=== PATIENT | female | born 1960 | race Caucasian/White ===

== ENCOUNTER 2023-04-04 12:35 | Observation (INO) | payer OTHER ==
[2023-04-04] MEDS ORDERED: ACETAMINOPHEN 1000 MG/100 ML BAG IVPB ONE (14:34)
[2023-04-04] MEDS ORDERED: ACETAMINOPHEN INJECTION 100 ML IVPB ONE (14:36)
[2023-04-04 15:11] LABS: BASO % 0.3 % (0-2.0); EOS % 0.6 % (0-4.5); HEMATOCRIT 16.7 % (32.4-45.2); LYMPH % 18.9 % (8-40); MCH 25.7 pg (25.7-33.7); MCHC 32.3 g/dl (32.0-36.0); MEAN CELL VOLUME 79.5 fl (80-96); MEAN PLT VOLUME 6.2 fl (7.5-11.1); MONO % 5.6 % (3.8-10.2); NEUT % 74.6 % (42.8-82.8); PLATELET COUNT 357 10^3/uL (134-434); WHITE BLOOD COUNT 6.5 K/mm3 (4.0-10.0)
[2023-04-04 15:13] LABS: HEMOGLOBIN 5.4 GM/dL (10.7-15.3)
[2023-04-04 15:22] LABS: POTASSIUM 3.5 mmol/L (3.5-5.1)
[2023-04-04 15:23] LABS: INR 1.08 (0.83-1.09); PROTHROMBIN TIME (PATIENT) 12.5 SEC (9.7-13.0)
[2023-04-04 15:24] LABS: ALBUMIN 1.7 g/dl (3.4-5.0); CALCIUM 7.7 mg/dL (8.5-10.1)
[2023-04-04 15:25] LABS: BLOOD UREA NITROGEN 6.2 mg/dL (7-18)
[2023-04-04 15:28] LABS: CREATININE 1.1 mg/dL (0.55-1.3)
[2023-04-04 15:29] LABS: BILIRUBIN,TOTAL 0.4 mg/dL (0.2-1); TOT PROT 6.2 g/dl (6.4-8.2)
[2023-04-04] MEDS ORDERED: ACETAMINOPHEN 325 MG TABLET (FP) PO PRN (19:47)
[2023-04-04 20:52] LABS: RETICULOCYTES 1.93 % (0.5-1.5)
[2023-04-04] MEDS: ATORVASTATIN CA 80 MG TABLET (FP) PO SCH (23:00)
[2023-04-04] MEDS: HEPARIN NA (PORCINE) 5,000 UNITS/ML 1ML VIAL SQ SCH (23:00)
[2023-04-04] MEDS: INSULIN SLIDING SCALE (NOVOLOG) 1 VIAL SQ SCH (23:07)
[2023-04-05 00:10] VITALS: BMI 21.0
[2023-04-05] MEDS: INSULIN SLIDING SCALE (NOVOLOG) 1 VIAL SQ SCH ×4 (06:01→21:44)
[2023-04-05] MEDS: HEPARIN NA (PORCINE) 5,000 UNITS/ML 1ML VIAL SQ SCH ×2 (09:17→21:32)
[2023-04-05] MEDS: PANTOPRAZOLE 40 MG TABLET PO SCH (09:17)
[2023-04-05 09:42] LABS: BASO % 0.4 % (0-2.0); EOS % 0.9 % (0-4.5); HEMATOCRIT 22.2 % (32.4-45.2); HEMOGLOBIN 7.2 GM/dL (10.7-15.3); LYMPH % 21.8 % (8-40); MCH 25.8 pg (25.7-33.7); MCHC 32.2 g/dl (32.0-36.0); MEAN CELL VOLUME 80.1 fl (80-96); MEAN PLT VOLUME 6.7 fl (7.5-11.1); MONO % 6.1 % (3.8-10.2); NEUT % 70.8 % (42.8-82.8); PLATELET COUNT 350 10^3/uL (134-434); RBC 2.77 M/mm3 (3.60-5.2); WHITE BLOOD COUNT 6.1 K/mm3 (4.0-10.0)
[2023-04-05 10:06] LABS: MAGNESIUM 1.8 mg/dL (1.8-2.4)
[2023-04-05 10:10] LABS: PHOSPHOROUS 1.8 mg/dL (2.5-4.9)
[2023-04-05] MEDS ORDERED: SODIUM PHOSPHATE - 15 MM in SODIUM CHLORIDE 250 ML IVPB ONE (19:00)
[2023-04-05] MEDS: ATORVASTATIN CA 80 MG TABLET (FP) PO SCH (21:32)
[2023-04-06] MEDS: INSULIN SLIDING SCALE (NOVOLOG) 1 VIAL SQ SCH ×5 (06:03→22:04)
[2023-04-06] MEDS: PANTOPRAZOLE 40 MG TABLET PO SCH (09:43)
[2023-04-06] MEDS: HEPARIN NA (PORCINE) 5,000 UNITS/ML 1ML VIAL SQ SCH ×2 (09:43→22:04)
[2023-04-06 15:40] LABS: BASO % 0.3 % (0-2.0); HEMATOCRIT 17.7 % (32.4-45.2); LYMPH % 24.5 % (8-40); MCH 26.8 pg (25.7-33.7); MCHC 33.8 g/dl (32.0-36.0); MEAN CELL VOLUME 79.2 fl (80-96); MEAN PLT VOLUME 6.4 fl (7.5-11.1); MONO % 8.3 % (3.8-10.2); NEUT % 65.9 % (42.8-82.8); PLATELET COUNT 334 10^3/uL (134-434); RBC 2.24 M/mm3 (3.60-5.2); RDW 16.6 % (11.6-15.6)
[2023-04-06 15:54] LABS: POTASSIUM 3.4 mmol/L (3.5-5.1)
[2023-04-06 15:56] LABS: CALCIUM 7.2 mg/dL (8.5-10.1)
[2023-04-06 15:57] LABS: BLOOD UREA NITROGEN 18.7 mg/dL (7-18); MAGNESIUM 1.6 mg/dL (1.8-2.4)
[2023-04-06] MEDS ORDERED: MAGNESIUM SULF 50% (8.12 MEQ/2 ML-1 GM VIAL) IVPB ONE (15:57)
[2023-04-06 16:00] LABS: CREATININE 2.5 mg/dL (0.55-1.3); PHOSPHOROUS 2.4 mg/dL (2.5-4.9)
[2023-04-06] MEDS ORDERED: SODIUM PHOSPHATE - 0 MM in SODIUM CHLORIDE 250 ML IVPB ONE (16:15)
[2023-04-06] MEDS ORDERED: POTASSIUM PHOSPHATE 15 MM in SODIUM CHLORIDE 250 ML IVPB ONE (17:10)
[2023-04-06] MEDS: MIDODRINE HCL 2.5 MG TABLET PO SCH (18:06)
[2023-04-06] MEDS: ATORVASTATIN CA 80 MG TABLET (FP) PO SCH (22:04)
[2023-04-07] MEDS: INSULIN SLIDING SCALE (NOVOLOG) 1 VIAL SQ SCH ×4 (07:06→22:34)
[2023-04-07] MEDS ORDERED: SODIUM CHLORIDE 250 ML IV PRN (10:05)
[2023-04-07 10:33] LABS: BASO % 0.3 % (0-2.0); EOS % 1.1 % (0-4.5); LYMPH % 19.3 % (8-40); MCH 26.4 pg (25.7-33.7); MCHC 33.3 g/dl (32.0-36.0); MEAN CELL VOLUME 79.3 fl (80-96); MEAN PLT VOLUME 6.3 fl (7.5-11.1); MONO % 6.9 % (3.8-10.2); NEUT % 72.4 % (42.8-82.8); PLATELET COUNT 358 10^3/uL (134-434); RBC 2.64 M/mm3 (3.60-5.2); RDW 16.2 % (11.6-15.6); WHITE BLOOD COUNT 6.6 K/mm3 (4.0-10.0)
[2023-04-07 10:52] LABS: POTASSIUM 3.8 mmol/L (3.5-5.1)
[2023-04-07 10:54] LABS: CALCIUM 7.5 mg/dL (8.5-10.1)
[2023-04-07 10:55] LABS: BLOOD UREA NITROGEN 25.4 mg/dL (7-18)
[2023-04-07 10:57] LABS: CREATININE 2.9 mg/dL (0.55-1.3)
[2023-04-07] MEDS: MIDODRINE HCL 2.5 MG TABLET PO SCH ×2 (12:53→18:58)
[2023-04-07] MEDS: PANTOPRAZOLE 40 MG TABLET PO SCH (12:54)
[2023-04-07] MEDS: HEPARIN NA (PORCINE) 5,000 UNITS/ML 1ML VIAL SQ SCH ×2 (12:54→22:34)
[2023-04-07 16:31] VITALS: RESP 18
[2023-04-07] MEDS: ATORVASTATIN CA 80 MG TABLET (FP) PO SCH (22:48)
[2023-04-08] MEDS: INSULIN SLIDING SCALE (NOVOLOG) 1 VIAL SQ SCH ×3 (06:18→17:39)
[2023-04-08 06:52] VITALS: PULSE 92
[2023-04-08] MEDS: PANTOPRAZOLE 40 MG TABLET PO SCH (10:58)
[2023-04-08] MEDS: HEPARIN NA (PORCINE) 5,000 UNITS/ML 1ML VIAL SQ SCH (10:58)
[2023-04-08] MEDS: MIDODRINE HCL 2.5 MG TABLET PO SCH (10:58)
[2023-04-08 12:17] VITALS: BP 108/51; TEMP 98.1
[2023-04-08 13:06] LABS: BASO % 0.6 % (0-2.0); EOS % 1.1 % (0-4.5); HEMOGLOBIN 7.8 GM/dL (10.7-15.3); MCH 27.2 pg (25.7-33.7); MCHC 33.8 g/dl (32.0-36.0); MEAN CELL VOLUME 80.6 fl (80-96); MEAN PLT VOLUME 6.4 fl (7.5-11.1); MONO % 8.6 % (3.8-10.2); NEUT % 66.7 % (42.8-82.8); PLATELET COUNT 323 10^3/uL (134-434); RBC 2.85 M/mm3 (3.60-5.2); RDW 15.5 % (11.6-15.6); WHITE BLOOD COUNT 6.3 K/mm3 (4.0-10.0)
[2023-04-08 13:27] LABS: POTASSIUM 3.3 mmol/L (3.5-5.1)
[2023-04-08 13:29] LABS: CALCIUM 7.3 mg/dL (8.5-10.1)
[2023-04-08 13:30] LABS: ALBUMIN 1.5 g/dl (3.4-5.0); BLOOD UREA NITROGEN 14.9 mg/dL (7-18); MAGNESIUM 1.8 mg/dL (1.8-2.4)
[2023-04-08 13:33] LABS: PHOSPHOROUS 1.9 mg/dL (2.5-4.9)
[2023-04-08 13:34] LABS: TOT PROT 5.5 g/dl (6.4-8.2)
[2023-04-08 13:35] LABS: BILIRUBIN,TOTAL 0.6 mg/dL (0.2-1)
[2023-04-08] MEDS ORDERED: NAPH,MB-DB/K PH,MBDB POWDER PACKET PO ONE (13:40)
== END 2023-04-08 17:47 ==
LOC: JER 12:35 → JERBED 16:30 → J5S 20:00
PROVIDERS: ADMIT Internal Medicine
PROC: 30233N1 Transfusion of Nonautologous Red Blood Cells into Peripheral Vein, Percutaneous Approach (ICD-10-PCS; principal; 2023-04-04)
PROC: 3E033NZ Introduction of Analgesics, Hypnotics, Sedatives into Peripheral Vein, Percutaneous Approach (ICD-10-PCS; 2023-04-04)
PROC: 3E023GC Introduction of Other Therapeutic Substance into Muscle, Percutaneous Approach (ICD-10-PCS; 2023-04-04)
PROC: 3E033GC Introduction of Other Therapeutic Substance into Peripheral Vein, Percutaneous Approach (ICD-10-PCS; 2023-04-04)
PROC: 3E033GC Introduction of Other Therapeutic Substance into Peripheral Vein, Percutaneous Approach (ICD-10-PCS; 2023-04-04)
DX: D63.1 Anemia in chronic kidney disease (principal); E11.22 Type 2 diabetes mellitus with diabetic chronic kidney disease; R77.9 Abnormality of plasma protein, unspecified; Z86.73 Personal history of transient ischemic attack (TIA), and cerebral infarction without residual deficits; R01.1 Cardiac murmur, unspecified; N18.6 End stage renal disease; Z99.2 Dependence on renal dialysis; E78.5 Hyperlipidemia, unspecified; Z91.018 Allergy to other foods
CPT/HCPCS: 36415; 36430; 71045-TC-FY; 71046-TC-FY; 80048; 80053; 82272; 82728; 82962; 83540; 83550; 83735; 84100; 85025; 85045; 85610; 85730; 86704; 86803; 86900; 86922; 87340; 87517; 87635; 93005; 93010; 93306-TC; 96365; 96366; 96372; 96375; 97116-GP; 97162-GP; 99285-25; G0378; J1644; P9058

== ENCOUNTER 2023-04-25 11:41 | Emergency (ER) | payer OTHER ==
[2023-04-25 12:06] VITALS: BMI 20.8
[2023-04-25 13:57] LABS: INR 1.09 (0.83-1.09); PROTHROMBIN TIME (PATIENT) 12.6 SEC (9.7-13.0)
[2023-04-25 13:59] LABS: ACTIVATED PTT 27.2 SECONDS (25.2-36.5); BASO % 0.2 % (0-2.0); EOS % 0.9 % (0-4.5); HEMATOCRIT 18.5 % (32.4-45.2); LYMPH % 13.4 % (8-40); MCH 25.2 pg (25.7-33.7); MCHC 32.5 g/dl (32.0-36.0); MEAN CELL VOLUME 77.5 fl (80-96); MONO % 7.3 % (3.8-10.2); NEUT % 78.2 % (42.8-82.8); PLATELET COUNT 309 10^3/uL (134-434); RBC 2.39 M/mm3 (3.60-5.2); RDW 18.2 % (11.6-15.6); WHITE BLOOD COUNT 8.5 K/mm3 (4.0-10.0)
[2023-04-25 14:25] LABS: CHLORIDE 102 mmol/L (98-107); POTASSIUM 3.2 mmol/L (3.5-5.1); SODIUM 137 mmol/L (136-145)
[2023-04-25 14:27] LABS: CALCIUM 7.6 mg/dL (8.5-10.1)
[2023-04-25 14:28] LABS: ALBUMIN 1.5 g/dl (3.4-5.0); ANION GAP 5 mmol/L (4-13); CO2 30 mmol/L (21-32); GLUCOSE,RANDOM 122 mg/dL (74-106); MAGNESIUM 1.8 mg/dL (1.8-2.4)
[2023-04-25 14:31] LABS: CREATININE 1.1 mg/dL (0.55-1.3); SGOT/AST 6 U/L (15-37)
[2023-04-25 14:33] LABS: BILIRUBIN,TOTAL 0.5 mg/dL (0.2-1); TOT PROT 5.8 g/dl (6.4-8.2)
[2023-04-25 14:34] LABS: ALK PHOS 94 U/L (45-117)
[2023-04-25 14:35] LABS: PHOSPHOROUS 1.1 mg/dL (2.5-4.9); SGPT/ALT < 6 U/L (13-61)
[2023-04-25] MEDS ORDERED: NAPH,MB-DB/K PH,MBDB POWDER PACKET PO ONE (15:25)
[2023-04-25] MEDS ORDERED: NAPH,MB-DB/K PH,MBDB POWDER PACKET ONE (17:20)
[2023-04-25] MEDS ORDERED: ONDANSETRON 4 MG/2 ML VIAL ONE (17:26)
[2023-04-25 17:32] VITALS: BP 153/75; PULSE 95; RESP 18; TEMP 98.5
[2023-04-25] MEDS ORDERED: ONDANSETRON 4 MG/2 ML VIAL IVPUSH ONE (17:42)
== END 2023-04-25 22:56 ==
LOC: JER 11:41
PROC: 3E033GC Introduction of Other Therapeutic Substance into Peripheral Vein, Percutaneous Approach (ICD-10-PCS; principal; 2023-04-25)
DX: D64.9 Anemia, unspecified (principal); Z20.822 Contact with and (suspected) exposure to COVID-19
CPT/HCPCS: 0241U-QW; 36415; 36430; 80053; 83735; 84100; 85025; 85610; 85730; 86850; 86900; 86901; 86922; 93005; 93010; 99284-25; P9058

== ENCOUNTER 2023-05-13 09:48 | Inpatient (IN) | payer OTHER ==
[2023-05-13 11:05] LABS: BASO % 0.2 % (0-2.0); EOS % 0.8 % (0-4.5); HEMATOCRIT 21.6 % (32.4-45.2); LYMPH % 13.6 % (8-40); MCHC 30.6 g/dl (32.0-36.0); MEAN CELL VOLUME 78.4 fl (80-96); MEAN PLT VOLUME 7.3 fl (7.5-11.1); MONO % 6.3 % (3.8-10.2); NEUT % 79.1 % (42.8-82.8); PLATELET COUNT 440 10^3/uL (134-434); RBC 2.76 M/mm3 (3.60-5.2); WHITE BLOOD COUNT 11.3 K/mm3 (4.0-10.0)
[2023-05-13 11:06] LABS: HEMOGLOBIN 6.6 GM/dL (10.7-15.3)
[2023-05-13 11:09] LABS: INR 1.18 (0.83-1.09); PROTHROMBIN TIME (PATIENT) 13.7 SEC (9.7-13.0)
[2023-05-13 11:31] LABS: POTASSIUM 3.8 mmol/L (3.5-5.1)
[2023-05-13 11:33] LABS: CALCIUM 7.4 mg/dL (8.5-10.1)
[2023-05-13 11:34] LABS: ALBUMIN 1.2 g/dl (3.4-5.0); BLOOD UREA NITROGEN 20.3 mg/dL (7-18)
[2023-05-13 11:37] LABS: CREATININE 1.6 mg/dL (0.55-1.3)
[2023-05-13 11:38] LABS: BILIRUBIN,TOTAL 0.5 mg/dL (0.2-1)
[2023-05-13 11:39] LABS: ANISOCYTOSIS 3+; MACROCYTOSIS 0; OVALOCYTE 1+; TARGET CELLS 1+
[2023-05-13 12:14] LABS: RETICULOCYTES 3.12 % (0.5-1.5)
[2023-05-13] MEDS ORDERED: SODIUM CHLORIDE 250 ML IV STA (12:18)
[2023-05-13] MEDS ORDERED: ACETAMINOPHEN 325 MG TABLET (FP) PO PRN (16:10)
[2023-05-13] MEDS ORDERED: D5-1/2NS+20 MEQ KCL - 20 MEQ/1,000 ML INFUS.BAG IV SCH (16:15)
[2023-05-13] MEDS ORDERED: MIDODRINE HCL 5 MG TABLET ONE (17:13)
[2023-05-13] MEDS: MIDODRINE HCL 2.5 MG TABLET PO SCH (17:14)
[2023-05-13] MEDS: ATORVASTATIN CA 80 MG TABLET (FP) PO SCH (22:06)
[2023-05-13] MEDS: PANTOPRAZOLE SODIUM 40 MG VIAL IVPUSH SCH (22:07)
[2023-05-14 09:28] LABS: BASO % 0.1 % (0-2.0); EOS % 1.8 % (0-4.5); HEMATOCRIT 27.4 % (32.4-45.2); HEMOGLOBIN 9.1 GM/dL (10.7-15.3); LYMPH % 16.6 % (8-40); MCH 26.2 pg (25.7-33.7); MCHC 33.3 g/dl (32.0-36.0); MEAN CELL VOLUME 78.8 fl (80-96); MEAN PLT VOLUME 6.9 fl (7.5-11.1); MONO % 6.6 % (3.8-10.2); NEUT % 74.9 % (42.8-82.8); PLATELET COUNT 386 10^3/uL (134-434); RBC 3.47 M/mm3 (3.60-5.2); RDW 18.9 % (11.6-15.6); WHITE BLOOD COUNT 10.5 K/mm3 (4.0-10.0)
[2023-05-14 09:48] LABS: POTASSIUM 3.3 mmol/L (3.5-5.1)
[2023-05-14 09:56] LABS: BLOOD UREA NITROGEN 23.1 mg/dL (7-18)
[2023-05-14 09:58] LABS: ALBUMIN 1.1 g/dl (3.4-5.0); BILIRUBIN,TOTAL 0.6 mg/dL (0.2-1); CALCIUM 7.5 mg/dL (8.5-10.1); TOT PROT 5.3 g/dl (6.4-8.2)
[2023-05-14 10:01] LABS: CHOLESTEROL < 50 mg/dL (50-200)
[2023-05-14 10:02] LABS: LDL CHOLESTEROL (ONLY SJRH) 7 mg/dL (5-100)
[2023-05-14 10:04] LABS: HDL CHOLESTEROL 26 mg/dL (40-60)
[2023-05-14] MEDS: MIDODRINE HCL 2.5 MG TABLET PO SCH ×2 (11:27→17:06)
[2023-05-14] MEDS: PANTOPRAZOLE SODIUM 40 MG VIAL IVPUSH SCH (11:27)
[2023-05-14 12:07] LABS: GAMMA GLUTAMYL TRANSPEPTIDASE 30 U/L (5-85)
[2023-05-14 12:11] LABS: IRON SERUM 21 ug/dL (50-175)
[2023-05-14 12:12] LABS: TOTAL IRON BINDING CAPACITY 40 ug/dL (250-450)
[2023-05-14] MEDS: POLYETHYLENE GLYCOL (HEALTHYLAX) 3350 17 GM PACKET PO SCH ×2 (13:50→21:59)
[2023-05-14] MEDS: ATORVASTATIN CA 80 MG TABLET (FP) PO SCH (21:58)
[2023-05-15] MEDS: POLYETHYLENE GLYCOL (HEALTHYLAX) 3350 17 GM PACKET PO SCH ×3 (06:08→21:54)
[2023-05-15 08:22] LABS: INR 1.27 (0.83-1.09); PROTHROMBIN TIME (PATIENT) 14.7 SEC (9.7-13.0)
[2023-05-15 08:28] LABS: POTASSIUM 3.5 mmol/L (3.5-5.1)
[2023-05-15 08:31] LABS: BASO % 0.2 % (0-2.0); EOS % 1.7 % (0-4.5); HEMATOCRIT 27.3 % (32.4-45.2); HEMOGLOBIN 9.1 GM/dL (10.7-15.3); LYMPH % 17.4 % (8-40); MCH 26.3 pg (25.7-33.7); MCHC 33.4 g/dl (32.0-36.0); MEAN CELL VOLUME 78.8 fl (80-96); MEAN PLT VOLUME 7.1 fl (7.5-11.1); MONO % 7.4 % (3.8-10.2); NEUT % 73.3 % (42.8-82.8); PLATELET COUNT 344 10^3/uL (134-434); RBC 3.46 M/mm3 (3.60-5.2)
[2023-05-15 08:32] LABS: CALCIUM 7.5 mg/dL (8.5-10.1)
[2023-05-15 08:33] LABS: ALBUMIN 1.1 g/dl (3.4-5.0); BLOOD UREA NITROGEN 29.6 mg/dL (7-18)
[2023-05-15 08:36] LABS: CREATININE 2.3 mg/dL (0.55-1.3)
[2023-05-15 08:38] LABS: BILIRUBIN,TOTAL 0.9 mg/dL (0.2-1); TOT PROT 5.4 g/dl (6.4-8.2)
[2023-05-15] MEDS ORDERED: SODIUM CHLORIDE 250 ML IV PRN (09:52)
[2023-05-15] MEDS ORDERED: PEG 3350/NA SULF BICARB CL/KCL 4000 ML SOLN.RECON PO ONE (10:00)
[2023-05-15] MEDS: PANTOPRAZOLE 40 MG TABLET PO SCH (10:29)
[2023-05-15] MEDS: MIDODRINE HCL 2.5 MG TABLET PO SCH ×2 (10:29→17:27)
[2023-05-15] MEDS ORDERED: EPOETIN ALFA-EPBX 10,000 UNIT/ML VIAL IVPUSH ONE (10:30)
[2023-05-15] MEDS: AMINO ACIDS/PROTEIN HYDROLYS 30 ML LIQUID.PKT PO SCH (17:27)
[2023-05-15] MEDS ORDERED: BISACODYL 5 MG TABLET.DR (FP) PO ONE (20:00)
[2023-05-15] MEDS: ATORVASTATIN CA 80 MG TABLET (FP) PO SCH (21:54)
[2023-05-16] MEDS: POLYETHYLENE GLYCOL (HEALTHYLAX) 3350 17 GM PACKET PO SCH ×3 (05:13→22:02)
[2023-05-16] MEDS: AMINO ACIDS/PROTEIN HYDROLYS 30 ML LIQUID.PKT PO SCH ×3 (08:00→17:26)
[2023-05-16] MEDS ORDERED: SODIUM CHLORIDE 250 ML IV STA (11:05)
[2023-05-16] MEDS ORDERED: EPOETIN ALFA-EPBX 10,000 UNIT/ML VIAL IVPUSH ONE (11:15)
[2023-05-16 11:24] LABS: HEMATOCRIT 24.9 % (32.4-45.2); HEMOGLOBIN 8.4 GM/dL (10.7-15.3); MCH 26.8 pg (25.7-33.7); MCHC 33.9 g/dl (32.0-36.0); MEAN CELL VOLUME 79.2 fl (80-96); MEAN PLT VOLUME 7.4 fl (7.5-11.1); PLATELET COUNT 323 10^3/uL (134-434); RBC 3.14 M/mm3 (3.60-5.2); RDW 20.7 % (11.6-15.6); WHITE BLOOD COUNT 9.7 K/mm3 (4.0-10.0)
[2023-05-16 12:00] LABS: POTASSIUM 3.1 mmol/L (3.5-5.1)
[2023-05-16 12:01] LABS: CALCIUM 7.4 mg/dL (8.5-10.1)
[2023-05-16 12:02] LABS: BLOOD UREA NITROGEN 30.3 mg/dL (7-18)
[2023-05-16 12:05] LABS: CREATININE 2.3 mg/dL (0.55-1.3)
[2023-05-16] MEDS: VITAMIN B COMP W-C 1 EA TABLET (NEPHRO-VITE) PO SCH (14:36)
[2023-05-16] MEDS: PANTOPRAZOLE 40 MG TABLET PO SCH (14:36)
[2023-05-16] MEDS: MIDODRINE HCL 2.5 MG TABLET PO SCH ×2 (14:36→17:32)
[2023-05-16] MEDS: ATORVASTATIN CA 80 MG TABLET (FP) PO SCH (22:03)
[2023-05-17] MEDS: POLYETHYLENE GLYCOL (HEALTHYLAX) 3350 17 GM PACKET PO SCH ×3 (06:34→21:47)
[2023-05-17] MEDS: VITAMIN B COMP W-C 1 EA TABLET (NEPHRO-VITE) PO SCH (11:45)
[2023-05-17] MEDS: MIDODRINE HCL 2.5 MG TABLET PO SCH ×2 (11:45→17:51)
[2023-05-17] MEDS: PANTOPRAZOLE 40 MG TABLET PO SCH (11:45)
[2023-05-17] MEDS: ESCITALOPRAM OXALATE 10 MG TABLET PO SCH (11:45)
[2023-05-17] MEDS: AMINO ACIDS/PROTEIN HYDROLYS 30 ML LIQUID.PKT PO SCH ×3 (11:45→17:52)
[2023-05-17] MEDS: ATORVASTATIN CA 80 MG TABLET (FP) PO SCH (21:47)
[2023-05-18] MEDS: POLYETHYLENE GLYCOL (HEALTHYLAX) 3350 17 GM PACKET PO SCH ×3 (05:27→21:38)
[2023-05-18] MEDS: AMINO ACIDS/PROTEIN HYDROLYS 30 ML LIQUID.PKT PO SCH ×3 (09:00→17:03)
[2023-05-18] MEDS: PANTOPRAZOLE 40 MG TABLET PO SCH (11:00)
[2023-05-18] MEDS: MIDODRINE HCL 2.5 MG TABLET PO SCH ×2 (11:00→17:03)
[2023-05-18] MEDS: ESCITALOPRAM OXALATE 10 MG TABLET PO SCH (11:00)
[2023-05-18] MEDS: VITAMIN B COMP W-C 1 EA TABLET (NEPHRO-VITE) PO SCH (11:00)
[2023-05-18] MEDS: ATORVASTATIN CA 80 MG TABLET (FP) PO SCH (21:38)
[2023-05-18] MEDS ORDERED: ACETAMINOPHEN 325 MG TABLET (FP) PO ONE (23:00)
[2023-05-18] MEDS: DEXTROSE 5%-0.45% SALINE 1,000 ML IV SCH (23:29)
[2023-05-19] MEDS: POLYETHYLENE GLYCOL (HEALTHYLAX) 3350 17 GM PACKET PO SCH ×3 (06:14→22:36)
[2023-05-19] MEDS: AMINO ACIDS/PROTEIN HYDROLYS 30 ML LIQUID.PKT PO SCH ×4 (08:07→17:32)
[2023-05-19] MEDS: ESCITALOPRAM OXALATE 10 MG TABLET PO SCH (10:03)
[2023-05-19] MEDS: VITAMIN B COMP W-C 1 EA TABLET (NEPHRO-VITE) PO SCH (10:03)
[2023-05-19] MEDS: PANTOPRAZOLE 40 MG TABLET PO SCH (10:03)
[2023-05-19] MEDS: MIDODRINE HCL 2.5 MG TABLET PO SCH ×3 (10:03→17:32)
[2023-05-19] MEDS ORDERED: SODIUM CHLORIDE 250 ML IV PRN ×2 (13:06→14:25)
[2023-05-19] MEDS ORDERED: EPOETIN ALFA-EPBX 10,000 UNIT/ML VIAL SQ ONE ×2 (13:45→14:30)
[2023-05-19] MEDS ORDERED: ALTEPLASE (CATHFLO) 2 MG/2 ML VIAL NR ONE ×2 (15:46→15:47)
[2023-05-19] MEDS: DEXTROSE 5%-0.45% SALINE 1,000 ML IV SCH (22:36)
[2023-05-19] MEDS: ATORVASTATIN CA 80 MG TABLET (FP) PO SCH (22:36)
[2023-05-20] MEDS: DEXTROSE 5%-0.45% SALINE 1,000 ML IV SCH (03:01)
[2023-05-20] MEDS: POLYETHYLENE GLYCOL (HEALTHYLAX) 3350 17 GM PACKET PO SCH ×2 (06:46→14:17)
[2023-05-20] MEDS ORDERED: SODIUM CHLORIDE 250 ML IV PRN (08:56)
[2023-05-20] MEDS: ESCITALOPRAM OXALATE 10 MG TABLET PO SCH (09:46)
[2023-05-20] MEDS: AMINO ACIDS/PROTEIN HYDROLYS 30 ML LIQUID.PKT PO SCH ×3 (09:46→17:11)
[2023-05-20] MEDS: MIDODRINE HCL 2.5 MG TABLET PO SCH ×2 (09:47→14:54)
[2023-05-20] MEDS: PANTOPRAZOLE 40 MG TABLET PO SCH (09:47)
[2023-05-20] MEDS: VITAMIN B COMP W-C 1 EA TABLET (NEPHRO-VITE) PO SCH (09:47)
[2023-05-20] MEDS: ALBUMIN HUMAN 25% 12.5 GM/50 ML VIAL IV SCH ×4 (10:45→12:15)
[2023-05-20] MEDS ORDERED: EPOETIN ALFA-EPBX 10,000 UNIT/ML VIAL IVPUSH ONE (12:00)
[2023-05-20 12:38] LABS: POTASSIUM 3.4 mmol/L (3.5-5.1)
[2023-05-20 12:39] LABS: HEMATOCRIT 25.1 % (32.4-45.2); MCH 26.7 pg (25.7-33.7); MEAN CELL VOLUME 83.4 fl (80-96); MEAN PLT VOLUME 7.9 fl (7.5-11.1); PLATELET COUNT 262 10^3/uL (134-434); RBC 3.01 M/mm3 (3.60-5.2); RDW 23.2 % (11.6-15.6); WHITE BLOOD COUNT 10.7 K/mm3 (4.0-10.0)
[2023-05-20 12:40] LABS: CALCIUM 7.8 mg/dL (8.5-10.1)
[2023-05-20 12:41] LABS: ALBUMIN 1.1 g/dl (3.4-5.0); BLOOD UREA NITROGEN 35.9 mg/dL (7-18)
[2023-05-20 12:44] LABS: CREATININE 2.6 mg/dL (0.55-1.3)
[2023-05-20 12:46] LABS: BILIRUBIN,TOTAL 0.8 mg/dL (0.2-1); TOT PROT 5.2 g/dl (6.4-8.2)
[2023-05-20 13:18] VITALS: BMI 24.0
[2023-05-20 14:46] VITALS: BP 121/57; PULSE 88; RESP 20; TEMP 97.7
== END 2023-05-20 17:00 | DRG 470 ==
LOC: JER 09:48 → JERBED 14:07 → J7W 20:30 → OBSVTOIN 05-16 12:11
PROVIDERS: ADMIT Family Medicine; ATTEND Family Medicine
PROC: 30233N1 Transfusion of Nonautologous Red Blood Cells into Peripheral Vein, Percutaneous Approach (ICD-10-PCS; principal; 2023-05-13)
PROC: 5A1D70Z Performance of Urinary Filtration, Intermittent, Less than 6 Hours Per Day (ICD-10-PCS; 2023-05-16)
PROC: 5A1D70Z Performance of Urinary Filtration, Intermittent, Less than 6 Hours Per Day (ICD-10-PCS; 2023-05-19)
PROC: 5A1D70Z Performance of Urinary Filtration, Intermittent, Less than 6 Hours Per Day (ICD-10-PCS; 2023-05-20)
DX: I12.0 Hypertensive chronic kidney disease with stage 5 chronic kidney disease or end stage renal disease (principal); N18.6 End stage renal disease; L89.153 Pressure ulcer of sacral region, stage 3; E43 Unspecified severe protein-calorie malnutrition; D63.1 Anemia in chronic kidney disease; E11.22 Type 2 diabetes mellitus with diabetic chronic kidney disease; N13.39 Other hydronephrosis; I95.9 Hypotension, unspecified; E78.5 Hyperlipidemia, unspecified; T82.49XA Other complication of vascular dialysis catheter, initial encounter; Z86.73 Personal history of transient ischemic attack (TIA), and cerebral infarction without residual deficits; Z91.199 Patient's noncompliance with other medical treatment and regimen due to unspecified reason; Z99.2 Dependence on renal dialysis; Z68.24 Body mass index [BMI] 24.0-24.9, adult; Y83.8 Other surgical procedures as the cause of abnormal reaction of the patient, or of later complication, without mention of misadventure at the time of the procedure
CPT/HCPCS: 36415; 36430; 71045-TC-FY; 74176-TC; 80048; 80053; 80061; 82272; 82550; 82728; 82962; 82977; 83010; 83036; 83540; 83550; 83615; 84443; 84466; 85025; 85027; 85045; 85610; 86803; 86850; 86900; 86901; 86922; 87340; 87635; 93005; 93010; 99285-25; G0378; J2997; P9038; P9047; P9058; Q5106